=== PATIENT | female | born 1980 | race Caucasian/White ===

== ENCOUNTER 2016-09-16 21:12 | Emergency (ER) | payer BC, OTHER ==
[~2016-09-16] VITALS: Ht 162.6 cm; Wt 127.0 kg
--- NOTE | ~2016-09-16 | EKG ---
[address] [place] [address] ELECTROCARDIOGRAM REPORT Name: LARRY DIAZ Room #: [facility]#: [id number] Admission: 09/16/16 Attend Phys: Discharge: 09/16/16 Date of : 82 Report #: [id number] THIS REPORT FOR: //name// [facility] ED Test Date: 2016-09-16 Test Time: 21:18:46 Pat Name: LARRY DIAZ Department: Room: Gender: F Relief Pharmacist: MZOOK : 1980 Requested By: Yancy Mcguire Order Number: [id number] MD: Gildardo Kelley Measurements Intervals Leigh Rate: 64 P: 65 ND: 160 QRS: 14 QRSD: 183 T: 28 QT: 412 QTc: 425 Interpretive Statements Sinus rhythm No significant abnormality No previous ECG available for comparison Electronically Signed On 09-17-2016 8:36:24 CDT by Gildardo Kelley [email or web address] <ELECTRONICALLY SIGNED> By: Gildardo Kelley MD, [facility] 09/17/16 [id number] Gildardo Kelley MD, FACC /EPI
[~2016-09-16 21:12] MED LIST: CYCLOBENZAPRINE; DIABETA 2.5MG2.5 MG PO; FLEXERIL PO; HYDROCODON-ACE1 EA11 PO; HYDROCODON-ACE1 EACH PO; HYDROCODONE-AP1 EAC6 PO; IBUPROFEN 200200 M1 PO; IBUPROFEN 800800 M1 PO; MACROBID 100 M100 M1 PO; MUSCLE RELAXER; NORCO 5-325 TA1 EACH; NORCO 5-325 TA1 EACH PO; ONDANSETRON HCL4 M2 PO; PREDNISONE 20 M20 M1; PREDNISONE 20 M20 MG PO; PRENATAL; PROAIR HFA8.5 GM; SYNTHROID PO; SYNTHROID150 MCG PO; TRIAMCINOLONE TOP; TUCKS MEDICATE1 EAC1; TUMS PO; VICODIN; XANAX 0.5 MG0.5 M1 PO
[2016-09-16] MEDS ORDERED: ESCITALOPRAM OX10 MG PO (21:42)
[2016-09-16] MEDS ORDERED: PROPRANOLOL 1010 MG PO (21:43)
[2016-09-16] MEDS ORDERED: VITAMIN D1000 UNI1 PO (21:43)
[2016-09-16] MEDS ORDERED: HYDROXYZINE HCL10 M1 PO (21:44)
[2016-09-16] MEDS ORDERED: NORCO 5-325 TA1 EACH PO (22:36)
[2016-09-16] MEDS ORDERED: IBUPROFEN 800800 M1 PO (22:36)
== END 2016-09-16 22:51 | disposition home or self-care (01) ==
LOC: ER 21:12
DX: M54.89 Other dorsalgia (principal); J45.909 Unspecified asthma, uncomplicated; F17.210 Nicotine dependence, cigarettes, uncomplicated; F10.99 Alcohol use, unspecified with unspecified alcohol-induced disorder